=== PATIENT | male | born 1970 | race Caucasian/White ===

== ENCOUNTER 2018-01-07 22:09 | Emergency (ER) | payer BC ==
[2018-01-07] MEDS ORDERED: IBUPROFEN 600 MG TAB PO ONE (22:16)
--- NOTE | 2018-01-07 22:23 | EDPHY ---
H & P Time Seen by Provider: 01/07/18 22:15 HPI/ROS: This patient injured his left ankle playing hockey this evening a few hours prior to arrival. His left skate got stuck up against the boards then he fell over backwards and felt pain the lateral aspect of his ankle. At knee has ongoing pain and reports there is immediate lateral swelling. He reports the pain is 3/10 at rest currently but becomes moderate to severe with movement or weight-bearing. He can however still bear some weight on the injured ankle. He reports no other injuries from the episode. He drove himself here by private vehicle for evaluation of this injury. Past Medical/Surgical History: Otherwise healthy Smoking Status: Never smoked Physical Exam: Physical Exam Vital signs are normal. General: No acute distress HEENT: Atraumatic. Eyes: Pupils equal and react to light. Extraocular motions are intact. Lungs: No respiratory distress. Cardiac: Brisk capillary refill is intact throughout. Pulses are 2+ and symmetric in the affected extremity. Skin: No rash or pallor. Extremities: Atraumatic normal except for left ankle Left ankle: Patient has moderate lateral malleolus swelling and tenderness that reproduces his symptoms. No medial ankle tenderness, Achilles tenderness, 5th metatarsal tenderness or other foot swelling or tenderness. Ligamentous stress testing is not evaluated due to likely had a fracture based on clinical exam. Neuro: Alert and oriented x3 with no sensorimotor deficits. Initial differential diagnosis: Ankle fracture, ligament sprain, traumatic hematoma Constitutional: Initial Vital Signs Temperature (C) 36.7 C 01/07/18 22:17 Heart Rate 83 01/07/18 22:17 Respiratory Rate 16 01/07/18 22:17 Blood Pressure 115/77 01/07/18 22:17 O2 Sat (%) 94 01/07/18 22:17 O2 Delivery Mode Room Air Allergies/Adverse Reactions: erythromycin base [Erythromycin Base] Allergy (Intermediate, Verified 01/07/18 22:30) Abdominal Cramping Home Medications: Medication Instructions Recorded Multivitamins [Multivitamin (OTC)] 1 each PO DAILY 08/15/12 PARoxetine HCL [Paxil 30mg (RX)] 30 mg PO DAILY 08/15/12 MDM/Departure - MDM Diagnostics: Three-view Ankle x-ray: Spiral fracture of the lateral malleolus without significant displacement or angulation by my interpretation Tib-fib [id number] proximal fibular tenderness rule out proximal fibular fracture-negative for proximal fibular fracture by my interpretation Imaging Results: Imaging Impressions Ankle X-Ray 01/07/18 22:16 Impression: Acute nondisplaced distal fibular fracture. Imaging: I viewed and interpreted images myself Medications Given: Discontinued Medications Ibuprofen (Motrin) 600 mg PO EDNOW ONE Stop: 01/07/18 22:17 Last Admin: 01/07/18 22:22 Dose: 600 mg ED Course/Re-evaluation: Splinting: orthoglass shortleg "Ritchie" splint (posterior and sugartong) applied by our tech with my supervision. Patient is neurovascular intact post splint application. Ibuprofen-600 mg p. O. I counseled patient regarding his diagnosis and treatment plan. Answered all his questions prior to discharge home Discussion: Spiral fracture lateral malleolus, neurovascularly intact without evidence of proximal fracture or other complicating factors. Patient understands the need to remain nonweightbearing until follow up with Orthopedics and is given crutches and crutch instructions prior to discharge home. - Depart Disposition: Home, Routine, Self-Care Clinical Impression: Lateral malleolar fracture Qualifiers: Encounter type: initial encounter Fracture type: closed Fracture alignment: nondisplaced Laterality: left Qualified Code(s): S82.65XA - Nondisplaced fracture of lateral malleolus of left fibula, initial encounter for closed fracture Condition: Good Instructions: Ankle Fracture (ED), Crutch Instructions (ED) Additional Instructions: Diagnosis: Lateral malleolus spiral fracture of the ankle Plan: Ice, elevate Splint at all times. Keep splint clean and dry Crutches. No weight-bearing. Follow up with Dr. Fernandez-orthopedic physician for evaluation the end of this week or early next week. Ibuprofen and Tylenol for pain control as needed. Return emergency department for unbearable pain, numbness despite loosening the Liam wraps or other concerns Referrals: KALEE WAN [Primary Care Provider] - As per Instructions Bennie Fernandez MD [Medical Doctor] - As per Instructions
[2018-01-07 22:30] VITALS: RESP 16
[2018-01-07] MEDS ORDERED: traMADol 50 MG TAB PO ONE (23:05)
[2018-01-07 23:29] VITALS: BP 118/76; PULSE 84; TEMP 97.7; O2SAT 96
== END 2018-01-07 23:25 | disposition home or self-care (01) ==
LOC: CED 22:09
PROC: 2W3RX1Z Immobilization of Left Lower Leg using Splint (ICD-10-PCS; principal; 2018-01-07)
DX: S82.65XA Nondisplaced fracture of lateral malleolus of left fibula, initial encounter for closed fracture (principal); W18.09XA Striking against other object with subsequent fall, initial encounter; Y99.8 Other external cause status; Y93.22 Activity, ice hockey
CPT/HCPCS: 73590-PO; 73610-PO

== ENCOUNTER → 2018-01-12 | Outpatient (CLI) | payer BC | LOC: CIMAGING 12:54 | PROVIDERS: ATTEND Podiatrist Foot & Ankle Surgery | DX: S82.832D Other fracture of upper and lower end of left fibula, subsequent encounter for closed fracture with routine healing (principal) | CPT/HCPCS: 73610-PO ==

== ENCOUNTER → 2018-01-29 | Outpatient (CLI) | payer BC | LOC: GIMAGING 12:13 → BRMIMAGING 12:13 → EDSTATUS 16:23 | PROVIDERS: ATTEND Podiatrist Foot & Ankle Surgery | DX: S82.832A Other fracture of upper and lower end of left fibula, initial encounter for closed fracture (principal) | CPT/HCPCS: 73610-PO ==

== ENCOUNTER → 2018-02-19 | Outpatient (CLI) | payer BC | LOC: CIMAGING 08:39 | PROVIDERS: ATTEND Podiatrist Foot & Ankle Surgery | DX: S82.832D Other fracture of upper and lower end of left fibula, subsequent encounter for closed fracture with routine healing (principal) | CPT/HCPCS: 73610-PO ==

== ENCOUNTER → 2018-03-13 | Outpatient (CLI) | payer BC | LOC: CIMAGING 11:42 | PROVIDERS: ATTEND Podiatrist Foot & Ankle Surgery | DX: S82.832D Other fracture of upper and lower end of left fibula, subsequent encounter for closed fracture with routine healing (principal) | CPT/HCPCS: 73610-PO ==